=== PATIENT | male | born 2000 | race Caucasian/White ===

== ENCOUNTER 2021-04-08 17:47 | Emergency (ER) | payer OTHER ==
[~2021-04-08] VITALS: Ht 190.5 cm; Wt 113.6 kg
[2021-04-08 18:25] VITALS: BP 161/90
--- NOTE | 2021-04-08 19:13 | PHYS DOC ---
Past Medical History Past Surgical History: Other Additional Past Surgical Histo: WRIST General Adult EDM: Chief Complaint: FOOT INJURY PAIN HPI: HPI: Patient is a 20 year old male patient who presents to the ED today complaining of 5 out of 10 left fifth toe pain, symptoms began 3 weeks ago after he stubbed his toe. Patient states symptoms are worse on touching the toe as well as weightbearing. States elevation relieves the pain. Describes the pain as throbbing and intermittent Review of Systems: Review of Systems: Constitutional: Denies fever or chills. [] Musculoskeletal: Reports left fifth toe pain Integument: Denies rash. [] Neurologic: Denies headache, focal weakness or sensory changes. [] Psychiatric: Denies depression or anxiety. [] Heart Score: C/O Chest Pain: N/A Risk Factors: Risk Factors: DM, Current or recent (<one month) smoker, HTN, HLP, family history of CAD, obesity. Risk Scores: Score 0 - 3: 2.5% MACE over next 6 weeks - Discharge Home Score 4 - 6: 20.3% MACE over next 6 weeks - Admit for Clinical Observation Score 7 - 10: 72.7% MACE over next 6 weeks - Early Invasive Strategies Allergies: Allergies: Allergies Coded Allergies Type Severity Reaction Last Updated Verified No Known Drug Allergies 04/08/21 No Physical Exam: PE: Constitutional: Well developed, well nourished, no acute distress, non-toxic appearance. [] Skin: Warm, dry, no erythema, no rash. [] Back: No tenderness, no CVA tenderness. [] Extremities: Left little toe with soft tissue swelling and tenderness to the toe. Patient able to move the toe. +2 left pedal pulse. Cap refill less than 2 seconds to left toes. Neurologic: Alert and oriented X 3, normal motor function, normal sensory function, no focal deficits noted. [] Psychologic: Affect normal, judgement normal, mood normal. [] Current Patient Data: Vital Signs: Vital Signs Date Time Temp Pulse Resp B/P (MAP) Pulse Ox O2 Delivery O2 Flow Rate FiO2 04/08/21 18:25 97.0 75 18 161/90 (113) 97 Room Air 97.0 EKG: EKG: [] Radiology/Procedures: Radiology/Procedures: []PROCEDURE: FOOT LEFT 3V EXAM: XR FOOT_LEFT 3 VIEWS 04/08/2021 4:46 PM CLINICAL INDICATION: Little toe pain COMPARISON: None TECHNIQUE: 3 views of the left foot FINDINGS: No acute fracture. Alignment is normal. Joint spaces are maintained. There is soft tissue swelling of the little toe. IMPRESSION: No acute osseous abnormality. Soft tissue swelling of the little toe. Electronically signed by: Sabina Ruelas MD (04/08/2021 7:27 PM) [id number] DICTATED and SIGNED BY: SABINA RUELAS MD DATE: 04/08/21 [id number] 0 Course & Med Decision Making: Course & Med Decision Making Pertinent Labs and Imaging studies reviewed. (See chart for details) This is a 30-year-old male patient presenting to the ED today complaining of left fifth toe pain. Symptoms began 3 weeks ago after he stubbed his toe. Left foot x-rays interpreted by radiologist are negative for any acute findings. Discharged home. Ice elevation encouraged. Follow-up with Ortho. OTC pain relievers Barbara Disclaimer: Barbara Disclaimer: This electronic medical record was generated, in whole or in part, using a voice recognition dictation system. Departure Departure Impression: Primary Impression: Contusion of left foot Qualified Codes: S90.32XA - Contusion of left foot, initial encounter Disposition: HOME / SELF CARE / HOMELESS Condition: STABLE Referrals: NO PCP (PCP) DARIN BROWN DO follow up in one week Patient Instructions: Contusion, [id number] Additional Instructions: You were seen for left foot contusion, your left foot x-rays are negative for any acute findings. Please ice and elevate the foot. Take [id number] pain relievers as needed for pain. Follow-up with the provided orthopedic doctor in 1 week if pain persist JOHN PAUL ALEXANDER CASE AIDE Apr 08, 2021 19:13
--- NOTE | 2021-04-08 19:30 | RAD ---
EXAM: XR FOOT_LEFT 3 VIEWS 04/08/2021 4:46 PM CLINICAL INDICATION: Little toe pain COMPARISON: None TECHNIQUE: 3 views of the left foot FINDINGS: No acute fracture. Alignment is normal. Joint spaces are maintained. There is soft tissue swelling of the little toe. IMPRESSION: No acute osseous abnormality. Soft tissue swelling of the little toe. Electronically signed by: Sabina Ruelas MD (04/08/2021 7:27 PM) [id number]
== END 2021-04-08 19:45 | disposition home or self-care (01) ==
LOC: ER 17:47
DX: S90.32XA Contusion of left foot, initial encounter (principal); W22.8XXA Striking against or struck by other objects, initial encounter; Y93.89 Activity, other specified; Y92.89 Other specified places as the place of occurrence of the external cause; Y99.8 Other external cause status
CPT/HCPCS: 73630; 99283